=== PATIENT | female | born 1985 | race Caucasian/White ===

== ENCOUNTER 2020-02-24 19:48 | Emergency (ER) | payer MEDICAID ==
[~2020-02-24] VITALS: Ht 170.2 cm; Wt 63.5 kg
[2020-02-24 20:06] VITALS: BP 108/71
--- NOTE | 2020-02-24 20:12 | NUR ---
PT TAKEN TO BED 9 WITH STEADY GAIT.
[2020-02-24] MEDS ORDERED: KETOROLAC 30 MG/ML VIAL IVP ONE (20:15)
[2020-02-24] MEDS ORDERED: NACL 0.9% 1,000 ML IV ONE (20:15)
--- NOTE | 2020-02-24 20:20 | NUR ---
34 year old female coming in for luq llq abdominal pain that is aching and radiating to lower back that started x 3 days. states being seen at another hospital and given abx with no relief. reports +nausea and vomiting. denies any other s/sx. denies injury or trauma. nka
--- NOTE | 2020-02-24 20:22 | NUR ---
Gladys turk in [facility] - 02/24/20 at 2021 by [email or web address] KEELEYE REPORT TO LINDY HUMPHREYS, CHARGE NURSE. PT WILL BE TAKEN TO 126A.
[2020-02-24] MEDS ORDERED: cefTRIAXone 1,000 MG VIAL ONE (20:28)
[2020-02-24] MEDS ORDERED: ONDANSETRON 4 MG/2 ML VIAL ONE (20:28)
[2020-02-24] MEDS ORDERED: ONDANSETRON 4 MG/2 ML VIAL IVP ONE (20:30)
--- NOTE | 2020-02-24 21:16 | NUR ---
Patient discharged with v/s stable. Written and verbal after care instructions given and explained. Patient alert, oriented and verbalized understanding of instructions. Ambulatory with steady gait. All questions addressed prior to discharge. ID band removed. Patient advised to follow up with PMD. Rx of motrin,norco, zofran, cipro given. Patient educated on indication of medication including possible reaction and side effects. Opportunity to ask questions provided and answered.
== END 2020-02-24 21:16 | disposition home or self-care (01) ==
LOC: MED 19:48
DX: N39.0 Urinary tract infection, site not specified (principal); Z98.890 Other specified postprocedural states
CPT/HCPCS: 81002; 81025; 87086; 96365; 96375; 99284; J0696; J1885; J2405; J7030; 96361